=== PATIENT | male | born 1975 ===

== ENCOUNTER → 2016-10-27 | Outpatient (CLI) | payer BC ==
[~2016-10-27] VITALS: Ht 170.2 cm; Wt 94.0 kg
[~2016-10-27] MED LIST: ASPCH81X PO; BYS/5 PO
[2016-10-27 15:42] VITALS: BP 132/83; PULSE 68; Ht 170.2 cm; Wt 94.0 kg
== END | disposition home or self-care (01) ==
LOC: C.NEUR 15:31
PROVIDERS: ATTEND Physician Assistant
DX: G47.30 Sleep apnea, unspecified (principal); G47.61 Periodic limb movement disorder; J30.9 Allergic rhinitis, unspecified; G47.411 Narcolepsy with cataplexy; K21.9 Gastro-esophageal reflux disease without esophagitis

== ENCOUNTER 2017-07-04 18:19 | Emergency (ER) | payer BC ==
[~2017-07-04] VITALS: Ht 170.2 cm; Wt 95.0 kg
[2017-07-04 18:28] VITALS: TEMP 36.7; Ht 170.2 cm; Wt 95.0 kg
--- NOTE | 2017-07-04 18:45 | DIAGNOSTIC IMAGING REPORT ---
CHEST 2 VIEWS ROUTINE CLINICAL HISTORY: 41 years-old Male presenting with eval for pna, fever, cough, flulike symptoms. TECHNIQUE: PA and lateral views of the chest were obtained. COMPARISON: 07/03/2015. FINDINGS: Cardiomediastinal silhouette normal. Mildly low lung volumes. Lungs and pleural spaces clear. Osseous structures normal. Upper abdomen normal. IMPRESSION: 1. Mildly low lung volumes. Otherwise no acute cardiopulmonary disease. Electronically signed by: Roc Hernandez M.D. 07/04/2017 6:43 PM Dictated Date/Time: 07/04/2017 6:43 PM
[2017-07-04] MEDS ORDERED: PRED10TA PO (18:55)
[2017-07-04] MEDS ORDERED: CLIN300C2 PO (18:57)
--- NOTE | 2017-07-04 19:01 | EMERGENCY ROOM VISIT NOTE ---
History Report prepared by Kristyn: April Ayers Under the Supervision of: Dr. Logan Morin M.D. First contact with patient: 18:21 Chief Complaint: FLU LIKE SX Stated Complaint: FLU LIKE SX History of Present Illness The patient is a 41 year old male who presents to the Emergency Room with complaints of worsening flu like symptoms starting yesterday. The patient states that he has been having body aches, a fever, coughing, and congestion. The patient notes that he went to [facility] yesterday and was diagnosed with an ear infection. The patient states they prescribed him Prednisone and Clindamycin. He reports that they did not check him for the flu. He denies chest pain, shortness of breath, vomiting, chest pain, and abdominal pain. He notes that he had a headache yesterday which resolved. His son was just diagnosed in the ED with influenza B. He does state that he is feeling generally much better than he did yesterday. Source of History: patient Onset: yesterday Position: other (global) Symptom Intensity: mild Quality: other (flulike symptoms) Timing: worsening Associated Symptoms: + fevers, + headache, + cough, No chest pain, No SOB, No vomiting, No abdominal pain Note: The patient complains of congestion. Review of Systems See HPI for pertinent positives & negatives. A total of 10 systems reviewed and were otherwise negative. Past Medical & Surgical Medical Problems: (1) Bronchitis (2) HTN (hypertension) Family History Hypertension MOTHER Social History Smoking Status: Never Smoker Alcohol Use: none Drug Use: none Marital Status: Housing Status: lives with family Occupation Status: employed Current/Historical Medications Scheduled Clindamycin Hcl (Cleocin), 1 CAP PO TID Nebivolol Hcl (Bystolic), 5 MG PO DAILY Prednisone Tab (Prednisone), 30 MG PO BID Allergies Coded Allergies: No Known Allergies (Unverified , 07/04/17) Physical Exam Vital Signs Date Time Temp Pulse Resp B/P (MAP) Pulse Ox O2 Delivery O2 Flow Rate FiO2 07/04/17 18:28 36.7 63 14 139/83 96 Room Air Physical Exam Constitutional: Vital signs reviewed. Eyes: Pupils are equal round reactive to light. Conjunctiva are noninjected. ENT: Pharynx is clear without erythema or exudate. Mucous membranes are moist. TM are clear bilaterally. Neck supple without meningeal signs. Respiratory: Clear to auscultation bilaterally. Breath sounds are equal bilaterally. Cardiovascular: Regular rate and rhythm. No rubs or gallops. GI: Soft, nondistended and nontender. Bowel sounds are present. Musculoskeletal: No peripheral edema. No lower extremity tenderness. Integumentary: No cyanosis. Neurological: The patient is awake and alert. No focal deficits. Psychiatric: Normal affect. Medical Decision & Procedures ER Provider Diagnostic Interpretation: Radiology results as stated below per my review and the radiologist's interpretation: CHEST 2 VIEWS ROUTINE CLINICAL HISTORY: 41 years-old Male presenting with eval for pna, fever, cough, flulike symptoms. TECHNIQUE: PA and lateral views of the chest were obtained. COMPARISON: 07/03/2015. FINDINGS: Cardiomediastinal silhouette normal. Mildly low lung volumes. Lungs and pleural spaces clear. Osseous structures normal. Upper abdomen normal. IMPRESSION: 1. Mildly low lung volumes. Otherwise no acute cardiopulmonary disease. Electronically signed by: Roc Hernandez M.D. 07/04/2017 6:43 PM Dictated Date/Time: 07/04/2017 6:43 PM ED Course 182: The patient was evaluated in room B2. A complete history and physical exam was performed. 1850: Upon reevaluation, the patient appeared to have improvement of his symptoms. I discussed tonight's findings with him. He does not have pneumonia so I recommend that he stop taking the Prednisone and antibiotic. He verbalized agreement of the treatment plan. The patient was discharged home. Medical Decision This is a 41-year-old male who presents with flulike symptoms. Differential diagnosis includes influenza, bronchitis, pneumonia, viral syndrome. I did perform a limited focused review of portions of the patient's old chart on the electronic medical record. The patient has had no recent pertinent visits to this hospital. I did evaluate the patient as noted above. The patient presents with flulike symptoms since yesterday. He was seen in an urgent care center yesterday. Treated him with prednisone and clindamycin for what he states was a left otitis media. On examination here he has no signs of otitis media. His son was just diagnosed with influenza B. Presumably the patient also has influenza B. Because of his cough, I did order and personally review the patient's chest x-ray as described above. There is no evidence of pneumonia. I did discuss the test results with him. I did review the efficacy and side effects of Tamiflu with him. He declined treatment which I did feel was a reasonable choice. I did recommend he stop taking the clindamycin and prednisone. He was discharged in good condition. Medication Reconcilliation Current Medication List: was personally reviewed by me Blood Pressure Screening Patient's blood pressure: Elevated blood pressure Blood pressure disposition: Referred to PCP Impression Primary Impression: Influenza Scribe Attestation The scribe's documentation has been prepared under my direct and personally reviewed by me in its entirety. I confirm that the note above accurately reflects all work, treatment, procedures, and medical decision making performed by me. Departure Information Dispostion Home / Self-Care Referrals Chad Laughlin M.D. (PCP) Forms HOME CARE DOCUMENTATION FORM, IMPORTANT VISIT INFORMATION Patient Instructions My [facility] Additional Instructions You have been examined and treated today on an emergency basis only. This is not a substitute for, or an effort to provide, complete comprehensive medical care. It is impossible to recognize and treat all injuries or illnesses in a single emergency department visit. It is therefore important that you follow up closely with your physician. Call as soon as possible for an appointment. Return for worsening symptoms or if you develop chest pain, shortness of breath , severe headaches, vomiting, or any other concerning symptoms.
[2017-07-04 19:39] VITALS: BP 131/74; PULSE 78; O2SAT 98
== END 2017-07-04 19:40 | disposition home or self-care (01) ==
LOC: C.EDB 18:21
DX: J11.1 Influenza due to unidentified influenza virus with other respiratory manifestations (principal); I10 Essential (primary) hypertension